=== PATIENT | female | born 1960 | race Caucasian/White ===

== ENCOUNTER 2017-01-17 23:59 | Emergency (ER) | payer MEDICAID ==
[~2017-01-17] VITALS: Ht 154.9 cm; Wt 59.0 kg
[~2017-01-17 23:59] MED LIST: ACETTAB85 PO; METF-372 PO; OMEP20CA74 PO; TRIA50TA2 PO
[2017-01-18] MEDS ORDERED: cloNIDine HCL 0.1 MG TAB PO ONE (03:30)
[2017-01-18 04:28] VITALS: BP 134/94
== END 2017-01-18 04:34 | disposition home or self-care (01) ==
LOC: ER 01-18
DX: F41.9 Anxiety disorder, unspecified (principal); F32.9 Major depressive disorder, single episode, unspecified; E11.9 Type 2 diabetes mellitus without complications; I10 Essential (primary) hypertension; Z87.11 Personal history of peptic ulcer disease; Z90.710 Acquired absence of both cervix and uterus
CPT/HCPCS: 82962

== ENCOUNTER 2021-09-23 16:59 | Emergency (ER) | payer MEDICAID ==
[~2021-09-23] VITALS: Ht 154.9 cm; Wt 54.0 kg
[~2021-09-23 16:59] MED LIST changes: +ACET-1603 PO; -ACETTAB85 PO
[2021-09-23 17:17] VITALS: BP 149/91
[2021-09-23] MEDS ORDERED: OXYMETAZOLINE HCL 0.05 % NASAL SPRAY 15ML EACHNOSTRI ONE (17:30)
== END 2021-09-23 17:57 | disposition home or self-care (01) ==
LOC: ER 16:59
DX: R04.0 Epistaxis (principal); E11.9 Type 2 diabetes mellitus without complications; Z90.710 Acquired absence of both cervix and uterus; Z88.6 Allergy status to analgesic agent